=== PATIENT | male | born 1945 | race Caucasian/White ===

== ENCOUNTER 2020-05-22 10:41 | Emergency (ER) | payer OTHER ==
[~2020-05-22] VITALS: Ht 177.8 cm; Wt 56.2 kg
[2020-05-22 15:15] VITALS: BP 132/78
== END 2020-05-22 15:15 | disposition home or self-care (01) ==
LOC: ER 10:41
DX: M25.551 Pain in right hip (principal); I10 Essential (primary) hypertension; F17.210 Nicotine dependence, cigarettes, uncomplicated

== ENCOUNTER → 2020-10-02 | Emergency (ER) | payer OTHER ==
[~2020-10-02] VITALS: Ht 180.3 cm; Wt 54.4 kg
[~2020-10-02] MED LIST: AUGMENTIN 875-1 EACH PO; BUDESONIDE EC3 MG PO; DURAGESIC1 EAC2 TOP; FLONASE 0.05%50 MCG NARES; GUAIFENESIN400 MG PO; HYDROCODON-ACE1 EAC7 PO; LIDODERM1 EACH TOP; PREDNISONE 10 M10 M1 PO; PROAIR HFA8.5 GM INH; ROBAXIN 750 MG750 MG PO; TRAZODONE HCL50 MG PO; VIBRAMYCIN 100100 M2 PO
[2020-10-02 12:07] VITALS: BP 115/66
[2020-10-02 13:51] LABS: HEMOGLOBIN 7.4 gm/dL (14.0-18.0); MCH 33.5 pg (26.0-34.0); WBC 2.5 thou/uL (4.0-11.0)
[2020-10-02 13:53] LABS: HEMATOCRIT 22.3 % (42.0-52.0); MCHC 33.2 g/dL (28.0-37.0); MCV 100.8 fL (80.0-100.0); RBC 2.21 mil/uL (4.50-6.00); RDW 20.2 % (10.5-14.5)
[2020-10-02 14:01] LABS: ANION GAP 8 mmol/L (7-16); BUN 18 mg/dL (7-18); CALCIUM 9.1 mg/dL (8.5-10.1); CHLORIDE 106 mmol/L (98-107); CO2 32 mmol/L (21-32); CREATININE 0.7 mg/dL (0.7-1.3); GLUCOSE 108 mg/dL (74-106); POTASSIUM 3.3 mmol/L (3.5-5.1); SODIUM 146 mmol/L (136-145)
[2020-10-02 14:11] LABS: ALBUMIN 3.6 g/dL (3.4-5.0); SGOT 24 U/L (15-37); SGPT 15 U/L (16-63); TOTAL BILIRUBIN 0.8 mg/dL (0.2-1.0); TOTAL PROTEIN 7.6 g/dL (6.4-8.2); TROPONIN-I <0.06 ng/mL (<0.06)
[2020-10-02 14:53] LABS: ABSOLUTE NEUTROPHILS 1.5 thou/uL (1.4-8.2); NUCLEATED RBCS 2 /100WBC
[2020-10-02 14:54] LABS: ANISOCYTOSIS 2+; MACROCYTES 1+
[2020-10-02 14:55] LABS: PLATELET COUNT 26 thou/uL (150-400)
[2020-10-02 14:56] LABS: PLATELET ESTIMATE MARKEDLY DECREASED
--- NOTE | 2020-10-03 07:10 | EKG ---
[place] [address] [facility] [place] [address] ELECTROCARDIOGRAM REPORT Name: AYALA CARPIO [id number] Admission: 10/02/20 Attend Phys: Discharge: Date of : 49 Report #: [id number] [facility] ED Test Date: 2020-10-02 Test Time: 13:38:27 Pat Name: AYALA CARPIO Department: Room: Gender: M Personnel Representative: QASIM : 1945 Requested By: Eliana Briggs Order Number: [id number] MD: Akin Welch Measurements Intervals [place] Rate: 95 P: 55 MN: 130 QRS: -23 QRSD: 96 T: 66 QT: 369 QTc: 464 Interpretive Statements Sinus rhythm Ventricular trigeminy Borderline left axis deviation RSR' in V1 or V2, probably normal variant No previous ECG available for comparison Electronically Signed On 10-03-2020 7:10:10 CDT by Akin Welch [email or web address] <ELECTRONICALLY SIGNED> By: Akin Welch MD, [facility] 10/03/20 0710 1338 [id number] Akin Welch MD, FACC /EPI
== END ==
LOC: ER 11:54
PROVIDERS: Physician Assistant
DX: J18.9 Pneumonia, unspecified organism (principal); D64.9 Anemia, unspecified; E87.6 Hypokalemia; R11.2 Nausea with vomiting, unspecified; F17.210 Nicotine dependence, cigarettes, uncomplicated; Z79.899 Other long term (current) drug therapy

== ENCOUNTER 2020-10-03 11:33 | Inpatient (IN) | payer OTHER ==
[~2020-10-03] VITALS: Ht 180.3 cm; Wt 55.2 kg
[~2020-10-03 11:33] MED LIST changes: -AUGMENTIN 875-1 EACH PO; -PREDNISONE 10 M10 M1 PO; -TRAZODONE HCL50 MG PO
[2020-10-03 11:38] VITALS: BP 162/66
[2020-10-03 12:29] LABS: MCH 33.3 pg (26.0-34.0); WBC 2.8 thou/uL (4.0-11.0)
[2020-10-03 12:30] LABS: MCHC 32.8 g/dL (28.0-37.0); MCV 101.3 fL (80.0-100.0); RBC 1.96 mil/uL (4.50-6.00)
[2020-10-03 12:40] LABS: HEMATOCRIT 19.9 % (42.0-52.0); HEMOGLOBIN 6.5 gm/dL (14.0-18.0)
[2020-10-03 12:51] LABS: ANION GAP 9 mmol/L (7-16); BUN 18 mg/dL (7-18); CHLORIDE 106 mmol/L (98-107); CO2 32 mmol/L (21-32); CREATININE 0.5 mg/dL (0.7-1.3); GLUCOSE 88 mg/dL (74-106); POTASSIUM 3.5 mmol/L (3.5-5.1); SODIUM 147 mmol/L (136-145)
[2020-10-03 13:06] LABS: ALBUMIN 3.3 g/dL (3.4-5.0); SGOT 26 U/L (15-37); SGPT 13 U/L (30-65); TOTAL BILIRUBIN 0.9 mg/dL (0.2-1.0); TOTAL PROTEIN 7.2 g/dL (6.4-8.2); TROPONIN-I <0.06 ng/mL (<0.06)
[2020-10-03 13:22] LABS: ABSOLUTE NEUTROPHILS 1.7 thou/uL (1.4-8.2); METAMYELOCYTES 1 %; NUCLEATED RBCS 2 /100WBC
[2020-10-03 13:23] LABS: POLYCHROMASIA 1+; SCHISTOCYTES OCCASIONAL; TEARDROPS FEW
[2020-10-03 13:24] LABS: PLATELET COUNT 28 thou/uL (150-400); TARGET CELLS OCCASIONAL
[2020-10-03 13:56] LABS: URINE BILIRUBIN NEGATIVE (Negative); URINE BLOOD NEGATIVE (Negative); URINE CLARITY CLEAR; URINE COLOR YELLOW; URINE GLUCOSE-RANDOM* NEGATIVE (Negative); URINE KETONES NEGATIVE (Negative); URINE LEUKOCYTES-REFLEX NEGATIVE (Negative); URINE NITRITE-REFLEX NEGATIVE (Negative); URINE PROTEIN (DIPSTICK) TRACE (Negative)
[2020-10-03 15:11] VITALS: BP 154/77
[2020-10-03 17:36] VITALS: BP 155/89; BP 161/83; BP 164/84; BP 168/114; BP 171/84
[2020-10-03 23:29] VITALS: BP 187/91
[2020-10-04 03:45] VITALS: BP 150/80
[2020-10-04 04:08] LABS: HEMATOCRIT 23.9 % (42.0-52.0); HEMOGLOBIN 8.1 gm/dL (14.0-18.0); MCH 32.8 pg (26.0-34.0); MCV 96.5 fL (80.0-100.0); RBC 2.47 mil/uL (4.50-6.00); RDW 20.3 % (10.5-14.5)
[2020-10-04 04:25] LABS: CALCIUM 8.7 mg/dL (8.5-10.1); CREATININE 0.6 mg/dL (0.7-1.3); POTASSIUM 3.9 mmol/L (3.5-5.1)
[2020-10-04 05:09] LABS: WBC 1.7 thou/uL (4.0-11.0)
[2020-10-04 05:18] LABS: ABSOLUTE RETIC COUNT 0.0738 10^6/uL; OBSERVED RETIC COUNT 2.84 % (0.6-2.6)
[2020-10-04 05:24] LABS: APTT 30.2 Seconds (24.5-32.8); INR 1.02; PROTIME 11.1 Seconds (9.3-11.4)
[2020-10-04 05:28] LABS: % SATURATION 45 % (20-39); IRON 105 ug/dL (65-175); TIBC 235 ug/dL (250-450)
--- NOTE | 2020-10-04 06:46 | NUR ---
PT ARRIVED FROM ER VIA W/C. PLACED IN ROOM 355. ADMISSION ASSESSMENTS COMPLETED. SEE CHARTING. ON ROOM AIR THROUGHOUT THE NIGHT. REPORTS COUGH WITH OCCASIONAL CLEAR TO YELLOW SPUTUM BUT NO COUGH OBSERVED. NOTED THIS AM WBC, 1.7 CLEARED FROM COVID ISOLATION R/T TWO NEGATIVE COVID SWABS.
--- NOTE | 2020-10-04 06:58 | EKG ---
[place] [address] [facility] [place] [address] ELECTROCARDIOGRAM REPORT Name: AYALA CARPIO Room #: 357-P ADM IN M.R.#: [id number] Admission: 10/03/20 Attend Phys: Armando Gar MD Discharge: Date of : 49 Report #: [id number] [facility] ED Test Date: 2020-10-03 Test Time: 12:19:25 Pat Name: AYALA CARPIO Department: Room: 357 Gender: M Weatherization Coordinator: ARLEN : 1945 Requested By: Gwendolyn Bach Order Number: [id number] MD: Akin Welch Measurements Intervals [place] Rate: 77 P: 74 TX: 154 QRS: -24 QRSD: 97 T: 52 QT: 410 QTc: 465 Interpretive Statements Sinus rhythm Ventricular premature complex Borderline low voltage, extremity leads Probable left ventricular hypertrophy Compared to ECG 10/02/2020 13:38:27 No significant changes Electronically Signed On 10-04-2020 6:58:28 CDT by Akin Welch [email or web address] <ELECTRONICALLY SIGNED> By: Akin Welch MD, [facility] 10/04/20 0658 Akin Welch MD, [facility] /EPI
[2020-10-04 07:02] VITALS: BP 149/74
[2020-10-04 07:41] VITALS: BP 151/71
--- NOTE | 2020-10-04 10:06 | 2DMMODE ---
[facility] [employer] [id number] 2 D/M-MODE ECHOCARDIOGRAM Name: AYALA CARPIO Room #: 357-P ADM IN .R.#: [id number] Admission: 10/03/20 Attend Phys: Armando Gar MD Discharge: Date of : 49 Report #: [id number] THIS REPORT FOR: cc: FAM - Family physician unknown FAM - Family physician unknown Akin Welch MD [facility] ~ APPROVED REPORT Study performed: 10/04/2020 07:49:50 EXAM: Comprehensive 2D, Doppler, and color-flow Echocardiogram Patient Location: Bedside Room #: 357 Status: routine BSA: 1.69 HR: 67 bpm BP: 146/76 mmHg Rhythm: NSR Other Information Study Quality: Adequate Indications Diabetes Murmur Hypertension/HDD 2D Dimensions RVDd: 33.94 mm IVSd: 14.02 (7-11mm) LVOT Diam: 2.20 (18-24mm) LVDd: 48.20 mm PWd: 12.12 (7-11mm) Ascending Ao: 34.14 (22-36mm) LVDs: 34.57 (25-40mm) Aortic Root: 30.32 mm IVC: 20.00 mm Volumes Left Atrial Volume (Systole) Single Plane 4CH: 55.46 mL Single Plane 2CH: 63.37 mL LA ESV Index: 45.00 mL/m2 Aortic Valve AoV Peak Jeremiah.: 1.65 m/s AO Peak Gr.: 10.84 mmHg LVOT Max P.21 mmHg [facility] [address] [address] 2 D/M-MODE ECHOCARDIOGRAM Name: SHIRINAYALA Room #: 357-P [facility] IN ..#: [id number] Admission: 10/03/20 Attend Phys: Armando Gar MD Discharge: Date of : 49 Report #: [id number] LVOT Max V: 1.03 m/s OLAYINKA Vmax: 3.36 cm2 AI Vmax: 4.58 m/s AI Young: 2.11 m/s2 AI PHT: 628.98 ms Mitral Valve E/A Ratio: 0.7 MV Decel. Time: 216.15 ms MV E Max Jeremiah.: 0.53 m/s MV A Jeremiah.: 0.71 m/s MV PHT: 62.68 ms IVRT: 119.95 ms Pulmonary Valve PV Peak Jeremiah.: 0.96 m/s PV Peak Gr.: 3.69 mmHg Pulmonary Vein P Vein S: 0.74 m/s P Vein A: 0.40 m/s P Vein D: 0.37 m/s P Vein A Dur.: 129.2 msec P Vein S/D Ratio: 2.00 Left Ventricle The left ventricle is normal size. There is normal left ventricular wall thickness. The left ventricular systolic function is normal. The left ventricular ejection fraction is within the normal range. LVEF is 55%. Grade I - abnormal relaxation pattern. Right Ventricle The right ventricle is normal size. The right ventricular systolic function is normal. Atria Left atrium is dilated. Right atrium is dilated. Aortic Valve The aortic valve is normal in structure. Aortic valve is thickened but has adequate excursion. Mild aortic regurgitation. There is no aortic valvular stenosis. Mitral Valve The mitral valve is normal in structure. Mild mitral regurgitation. No evidence of mitral valve stenosis. Tricuspid Valve The tricuspid valve is normal in structure. Trace tricuspid [facility] [address] [address] 2 D/M-MODE ECHOCARDIOGRAM Name: AYALA CARPIO Room #: 357-P ADM IN .R.#: [id number] Admission: 10/03/20 Attend Phys: Armando Gar MD Discharge: Date of : 49 Report #: [id number] regurgitation. Unable to assess PA pressure. Pulmonic Valve The pulmonary valve is normal in structure. Trace pulmonic regurgitation. Great Vessels The aortic root is normal in size. IVC is normal in size and collapses >50% with inspiration. Pericardium There is no pericardial effusion. <Conclusion> Normal left ventricular size/wall thickness Ejection fraction 55% Grade 1 diastolic dysfunction Normal right ventricular size/function Mild biatrial enlargement Color-flow Doppler study was performed of the aortic/mitral/tricuspid/pulmonary valve Tricuspid aortic valve Mild aortic valve insufficiency Mild mitral valve insufficiency Trace tricuspid valve insufficiency, unable to assess PA systolic pressure No pericardial effusion Normal aortic root size. <ELECTRONICALLY SIGNED> By: Akin Welch MD, FACC 10/04/201005 05 05 Akin Welch MD, FACC /INF
[2020-10-04 13:08] LABS: HAPTOGLOBIN 232 mg/dL (34-355); IgA 204 mg/dL (61-437); IgG 1007 mg/dL (603-1613); IgM 37 mg/dL (15-143)
[2020-10-04 14:07] LABS: HEMOGLOBIN 8.6 g/dL (13.0-17.7)
[2020-10-04 15:41] VITALS: BP 173/89
--- NOTE | 2020-10-04 15:44 | NUR ---
ASSESSMENT: CM REVIEWED CHART AND SPOKE WITH PATIENT. PT WAS ADMITTED DUE TO SOB POSSIBLE PNEUMONIA/SEPSIS. PT IS ON IV ANBX. PT REPORTS THAT HE LIVES IN A HOUSE WITH SIGNIFICANT OTHER. PT REPORTS THREE STEPS TO ENTER AND NO STEPS HE HAS TO USE ONCE INSIDE. PT REPORTS HE HAS A CANE AND WALKER AT HOME. PT REPORTS HE HAS A GRAB BAR IN THE SHOWER AND IS INDEPENDENT WITH ADLS. PT HAS NO OXYGEN AT HOME OR CPAP. CM WAS NOTIFIED THAT PATIENT HAS [place] [employer] [place]UR[place] AND THE [place] IS REQUESTING TRANSFER PENDING BED AVAILABILTY. ANDRE REACHED OUT TO TRANSFER RN AT THE [place] [phone] AND SPOKE WITH FARIDA WHO REPORTS THEY ARE CURRENTLY AT CAPACITY AND CANNOT ACCEPT HIM TODAY. FARIDA STATING SHE WILL NOTE IN PATIENTS CHART THAT WE ATTEMPTED TO TRANSFER HIM BUT THEY ARE FULL, SHE STATES TO Call BACK TOMORROW AM TO SEE IF THEY HAVE AVAILABILTY. CM NOTIFIED PT OF THIS. PT REPORTS HE PLANS ON DISCHARGING HOME TOMORROW. PT DOES NOT ANTICIPATE HAVING ANY NEEDS FROM CM. CM WILL CONTINUE TO FOLLOW TO ASSIST NEEDED.
[2020-10-04 17:21] VITALS: BP 149/97
--- NOTE | 2020-10-04 18:11 | NUR ---
PT TRANSFERED TO FLOOR FROM [facility] AT 1700 IN STABLE CONDITION.C/O COLD .WARM BLANKET GIVEN. DINNER GIVEN AND WELL TOLERATED.NO FURTHER C/O.WILL CONTINUE TO MONITOR.
[2020-10-04 20:01] VITALS: BP 132/84
--- NOTE | 2020-10-05 02:44 | NUR ---
PT CARE ASSUMED WITH PT IN BED WATCHING TV.PT IS A/O X4.PT IS UP WITH STANDBY ASSIST TO BATHROOM.PT C/O PAIN AND HYDROCODONE GIVEN.PT IS ON ROOM AIR.PT HAS BLE EDEMA .IV ACCESS ON RFA WITH NS AT 75CC/HR.WILL CONTINUE TO MONITOR
[2020-10-05 07:49] VITALS: BP 166/100
[2020-10-05 09:27] VITALS: BP 166/100
[2020-10-05] MEDS ORDERED: TRAZODONE HCL50 MG PO (11:12)
[2020-10-05] MEDS ORDERED: PREDNISONE 10 M10 M1 PO (11:14)
[2020-10-05] MEDS ORDERED: AUGMENTIN 875-1 EACH PO (11:14)
--- NOTE | 2020-10-05 12:00 | NUR ---
CARE TEAM INDICATED THAT PT IS MEDICALLY STABLE TO DISCHARGE HOME THIS DAY. PT IS TO DC HOME TO SELF CARE. NO OTHER CM INTERVENTION INDICATED. CASE CLOSED.
[2020-10-05 12:02] VITALS: BP 166/100
[2020-10-05 13:08] LABS: GLOBULIN TOTAL 3.2 g/dL (2.2-3.9); M-SPIKE Not Observed g/dL (Not Observed)
[2020-10-05 17:07] LABS: KAPPA FREE LIGHT CHAINS 15.2 mg/L (3.3-19.4); KAPPA/LAMBDA RATIO 1.32 (0.26-1.65); LAMBDA FREE LIGHT CHAINS 11.5 mg/L (5.7-26.3)
[2020-10-06] MEDS ORDERED: AUGMENTIN 875-1 EACH PO (11:30)
[2020-10-06] MEDS ORDERED: TRAZODONE HCL50 MG PO (11:30)
[2020-10-06] MEDS ORDERED: PREDNISONE 10 M10 M1 PO (11:30)
== END 2020-10-05 15:32 | disposition home or self-care (01) | DRG 871 ==
LOC: ER 11:33 → EROBS 17:08 → 3W 17:08 → 4W 10-04 16:53
PROVIDERS: Internal Medicine Hematology & Oncology; Nurse Practitioner Family; ADMIT Hospitalist; ATTEND Hospitalist
PROC: 30233N1 Transfusion of Nonautologous Red Blood Cells into Peripheral Vein, Percutaneous Approach (ICD-10-PCS; principal; 2020-10-03)
DX: A41.9 Sepsis, unspecified organism (principal); J18.9 Pneumonia, unspecified organism; E43 Unspecified severe protein-calorie malnutrition; J44.1 Chronic obstructive pulmonary disease with (acute) exacerbation; D61.818 Other pancytopenia; C79.51 Secondary malignant neoplasm of bone; Z68.1 Body mass index [BMI] 19.9 or less, adult; J44.0 Chronic obstructive pulmonary disease with (acute) lower respiratory infection; Z20.822 Contact with and (suspected) exposure to COVID-19; F17.210 Nicotine dependence, cigarettes, uncomplicated; G89.29 Other chronic pain; M54.2 Cervicalgia; C61 Malignant neoplasm of prostate; R53.81 Other malaise; M54.9 Dorsalgia, unspecified; R63.4 Abnormal weight loss; Z71.6 Tobacco abuse counseling; Z79.899 Other long term (current) drug therapy
CPT/HCPCS: 10045; 10879

== ENCOUNTER 2020-10-14 08:20 | Inpatient (IN) | payer OTHER ==
[~2020-10-14] VITALS: Ht 180.3 cm; Wt 52.8 kg
--- NOTE | ~2020-10-14 | EMS ---
[facility] [address] [place] [address] EMS Patient Care Report Name: AYALA CARPIO Room #: 451-P [facility] IN M.R.#: [id number] Admission: 10/14/20 Attend Phys: Luz Montanez MD Discharge: 10/18/20 Date of : 49 Report #: [id number] THIS REPORT FOR: //name// Report Transmitted: 10/20/2020 08:00 EMS Care Summary [facility] MED-ACT Incident [id number] @ 10/14/2020 07:38 Incident Location [address] [place] [address] Patient AYALA CARPIO Male, 75 Years 1945 Patient Address [address] [place] [address] Patient History Gastro-Esophageal Reflux Disease (GERD),Neuropathy,Prostate Cancer, Patient Allergies No known allergies, Patient Medications Other, Potassium, Methocarbamol, Gabapentin, Omeprazole, Amlodipine, Ibuprofen, Lidocaine, Prednisone, Guaifenesin, Trazodone, Tamsulosin, Ondansetron, Hydrocodone, Chief Complaint Neck Pain Disposition Transported No Lights/[place] Dis[place] Transported To [facility] Narrative CHIEF COMPLAINT: Neck Pain [facility] [address] [place] [address] EMS Patient Care Report Name: AYALA CARPIO Room #: 451-P DIS IN M.R.#: [id number] Admission: 10/14/20 Attend Phys: Luz Montanez MD Discharge: 10/18/20 Date of : 49 Report #: [id number] H.P.I.: Mr. Ayala Carpio, a 75 y.o.m., fell onto the kitchen floor while trying to hot die picker his cat. He denied L.O.C. before, during, or after the fall. He reported his neck hurts more than normal- usually rated at 2-3/10. Now 8/10 and over a broader area. His head pain is minor. UPON ARRIVAL: Mr. Carpio was sitting on the kitchen floor awake and in no distress. LFD had arrived on scene and had bandaged his elbow wound. He complained of neck pain, so I placed a cervical collar. DISPOSITION: After treating Mr. Carpio as described above we assisted him to his feet and then onto the stretcher. Transport was non-emergent to [facility] as per his choice. Info-only radio report; v/s monitored; no incidents or changes. We were directed to rm 9. We slid Mr. Carpio to the hospital bed. Report was received by an magra RN. Initial Vitals @08:13P: 84,R: 16,BP: 198/107,Pain: 8/10,GCS: 15,SpO2: 88,Revised Trauma: 12, @07:50P: 87,R: 20,BP: 177/97,Pain: 8/10,GCS: 15,SpO2: 91,Revised Trauma: 12, @08:03P: 86,R: 16,BP: 170/107,Pain: 8/10,GCS: 15,Temp: 98.2F,SpO2: 88,Revised Trauma: 12, Assessments @07:52MENTAL:Person Oriented,Time Oriented,Event Oriented,Place Oriented,SKIN:HEENT:Head/Face: Other,Neck/Airway: Other,LUNG SOUNDS:ABDOMEN:PELVIS//GI:EXTREMITIES:Right Arm: Other,Left Arm: No Abnormalities,Left Leg: No Abnormalities,Right Leg: No Abnormalities,PULSE:Radial: 2+ Normal,NEURO:No Abnormalities, Impression Injury of Head Procedures @PTASurgical Mask on PatientResponse: Unchanged@PTABandagingResponse: UnchangedSucceeded@07:54Spinal Motion RestrictionResponse: UnchangedSucceeded Timeline VIDEO RECORDER MECHANIC,Surgical Mask on Patient,Response: Unchanged VIDEO RECORDER MECHANIC,Bandaging,Response: UnchangedSucceeded, 07:36,Call Received 07:36,Psap Call 07:38,Dispatched 07:39,[place] [address] EMS Patient Care Report Name: AYALA CARPIO Room #: 451-P [facility] IN ..#: [id number] Admission: 10/14/20 Attend Phys: Luz Montanez MD Discharge: 10/18/20 Date of : 49 Report #: [id number] 07:45,On Scene 07:48,At Patient 07:50,BP: 177/97 M,PULSE: 87,RR: 20 R,SPO2: 91 Ox,ETCO2: ,BG: ,PAIN: 8,GCS: 15, 07:54,Spinal Motion Restriction,Response: UnchangedSucceeded, 08:02,Depart Scene 08:03,BP: 170/107 M,PULSE: 86,RR: 16 R,SPO2: 88 Ox,ETCO2: ,BG: ,PAIN: 8,GCS: 15, 08:08,At Destination 08:13,BP: 198/107 M,PULSE: 84,RR: 16 R,SPO2: 88 Ox,ETCO2: ,BG: ,PAIN: 8,GCS: 15, 08:28,Call Closed Disclaimer v1.1 Copyright 2020 [employer] This EMS Care Summary contains data elements from the applicable legal record (which may be displayed differently). It is designed to provide pertinent information for the following purposes: continuity of care, clinical quality, and state data reporting. The complete legal record is available to ED staff and administrators of the receiving hospital in [employer] Patient Tracker. All data is provided "as is."
[2020-10-14 08:20] VITALS: BP 172/100
[~2020-10-14 08:20] MED LIST changes: +AUGMENTIN 875-1 EACH PO; -DURAGESIC1 EAC2 TOP; +DURAGESIC1 EAC2 TRANSDERM; +PREDNISONE 10 M10 M1 PO; +TRAZODONE HCL50 MG PO
[2020-10-14] MEDS ORDERED: ONDANSETRON HCL4 M2 PO (08:43)
[2020-10-14] MEDS ORDERED: IBUPROFEN 800800 M1 PO (08:44)
[2020-10-14] MEDS ORDERED: CETIRIZINE HCL5 MG PO (08:45)
[2020-10-14] MEDS ORDERED: POTASSIUM99 M1 PO (08:45)
--- NOTE | 2020-10-14 08:50 | NUR ---
PT HAD TWO FENTANYL PATCHES ON BILATERAL THIGHS AND R REMOVED AT THIS TIME
[2020-10-14 09:08] LABS: HEMATOCRIT 24.5 % (42.0-52.0); HEMOGLOBIN 8.3 gm/dL (14.0-18.0); MCH 33.4 pg (26.0-34.0); MCHC 33.7 g/dL (28.0-37.0); MCV 99.3 fL (80.0-100.0); RBC 2.47 mil/uL (4.50-6.00); RDW 20.2 % (10.5-14.5)
[2020-10-14 09:10] LABS: CREATININE 0.5 mg/dL (0.7-1.3); POTASSIUM 3.9 mmol/L (3.5-5.1)
[2020-10-14 09:16] LABS: ALBUMIN 3.4 g/dL (3.4-5.0); TOTAL BILIRUBIN 1.3 mg/dL (0.2-1.0); TOTAL PROTEIN 7.1 g/dL (6.4-8.2)
[2020-10-14 09:20] LABS: PROTIME 10.4 Seconds (9.3-11.4)
[2020-10-14 09:24] LABS: WBC 1.7 thou/uL (4.0-11.0)
[2020-10-14 10:12] LABS: ABSOLUTE NEUTROPHILS 0.8 thou/uL (1.4-8.2); METAMYELOCYTES 6 %; NUCLEATED RBCS 2 /100WBC
[2020-10-14 10:13] LABS: ANISOCYTOSIS 2+; MACROCYTES 1+; MICROCYTES 1+
[2020-10-14 10:14] LABS: POLYCHROMASIA OCCASIONAL
[2020-10-14 10:15] LABS: PLATELET COUNT 23 thou/uL (150-400); PLATELET ESTIMATE MARKEDLY DECREASED
--- NOTE | 2020-10-14 10:35 | NUR ---
REMOVE FENTANYL PATCH PRIOR TO GIVING IV FENTANYL PER DR NUGENT REQUEST.
--- NOTE | 2020-10-14 10:45 | EKG ---
[place] [address] [facility] [place] [address] ELECTROCARDIOGRAM REPORT Name: AYALA CARPIO [facility] [id number] Admission: 10/14/20 Attend Phys: Discharge: Date of : 49 Report #: [id number] [facility] ED Test Date: 2020-10-14 Test Time: 08:42:28 Pat Name: AYALA CARPIO Department: Room: Gender: M Manager Maritime: : 1945 Requested By: Lynne Barboza Order Number: [id number] MD: Akin Welch Measurements Intervals [place] Rate: 78 P: 51 MA: 131 QRS: 18 QRSD: 95 T: 60 QT: 391 QTc: 446 Interpretive Statements Sinus rhythm Compared to ECG 10/03/2020 12:19:25 Ventricular premature complex(es) no longer present Electronically Signed On 10-14-2020 10:45:04 CDT by Akin Welch [email or web address] <ELECTRONICALLY SIGNED> By: Akin Welch MD, [facility] 10/14/20 1045 0842 0842 Akin Welch MD, FACFe /EPI
[2020-10-14 14:24] VITALS: BP 152/97
--- NOTE | 2020-10-14 17:18 | NUR ---
PATIENT ARRIVED TO UNIT FROM ED AT APPROX. 1500. DTR AT BEDSIDE TO ASSIST W ADMISSION. ADMISSION CHECKLIST COMPLETED. TELEMETRY APPLIED TO PATIENT. PATIENT ORIENTED TO ROOM; CALL LIGHT WITHIN REACH. [employer] CONTANCTED FOR NECK BRACE FITTING BUT THEY "WILL BE OUT UNTIL SATURDAY". FALL PRECAUTIONS IN PLACE. WILL CONTINUE TO MONITOR AND AWAIT ANY NEW ORDERS
[2020-10-14 19:54] VITALS: BP 150/73
[2020-10-15] VITALS (10 sets, daily range): BP systolic 91–149; BP diastolic 55–98
--- NOTE | 2020-10-15 03:00 | NUR ---
ASSUMED CARE OF PT AT 1900. PT IS A/O X4 AND IS UP WITH ASSISTANCE. C-COLLAR IN PLACE. 2 LITERS OF O2 NC. SR WITH PVC ON THE MONITOR. PHILLIP IN PLACE AND DRAINING YELLOW URINE. NO BM THIS SHIFT. APPEARS ANXIOUS AND C/O SEVERE GENERALIZED PAIN WITH RESTLESS LEGS. NOTIFIED PHYSCIAN THAT MED REQ HAD NOT BEEN IMPLEMENTED. ORDERS GIVEN TO RESTART HOME MEDICATIONS. PT HAS CHOSEN FOR COMFORT TO SLEEP IN RECLINER. C/O INSOMNIA. PRN SLEEP MEDICATION PROVIDED DIRECTED. FALL PRECAUTIONS AND SCD'S ARE IN PLACE. SKIN APPEARS BRUISED WITH A PRESSURE DRSG TO RIGHT ELBOW DUE TO RECENT SKIN TEAR. DRSG IS C/D/I. CALLS OUT APPROPRIATELY. WILL CONTINUE TO MONITOR.
[2020-10-15 09:07] LABS: WBC 2.6 thou/uL (4.0-11.0)
[2020-10-15 09:10] LABS: HEMATOCRIT 21.4 % (42.0-52.0); HEMOGLOBIN 7.2 gm/dL (14.0-18.0); MCH 33.5 pg (26.0-34.0); MCHC 33.9 g/dL (28.0-37.0); MCV 98.8 fL (80.0-100.0); RBC 2.16 mil/uL (4.50-6.00); RDW 19.7 % (10.5-14.5)
[2020-10-15 09:21] LABS: CALCIUM 8.5 mg/dL (8.5-10.1); CREATININE 0.6 mg/dL (0.7-1.3); MAGNESIUM 1.8 mg/dL (1.8-2.4); POTASSIUM 3.6 mmol/L (3.5-5.1); TOTAL BILIRUBIN 1.2 mg/dL (0.2-1.0); TOTAL PROTEIN 6.4 g/dL (6.4-8.2)
--- NOTE | 2020-10-15 09:46 | NUR ---
Received awake on bed. Due medications given as prescribed, able to swallow meds w/o difficulty. On telemetry; no complains and signs of chest pain, crushing sensation and heaviness. Assisted in ADLs. On O2 at 2lpm via nasal cannula. On soft fiber restricted diet- encouraged and assisted in eating and drinking; no nausea, no vomiting and no abdominal pain noted. With jaffe in place- output measured and recorded accordingly; using bedside commode at times as reported by previous RN. 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 With C colar in place. With SL at L AC and L UA- NS at 100cc/hr, infusing well. Falls bundle in place. Complained of pain, due PRN PO meds given as prescribed. Able to sit out on the chair this AM. To continue monitoring patient.
[2020-10-15 12:18] LABS: ABSOLUTE NEUTROPHILS 1.1 thou/uL (1.4-8.2); NUCLEATED RBCS 2 /100WBC
[2020-10-15 12:20] LABS: ANISOCYTOSIS 2+
[2020-10-15 12:31] LABS: PLATELET COUNT 18 thou/uL (150-400)
[2020-10-15 18:09] LABS: HEMATOCRIT 28.5 % (42.0-52.0); MCHC 34.5 g/dL (28.0-37.0); MCV 95.8 fL (80.0-100.0); RBC 2.97 mil/uL (4.50-6.00); RDW 17.5 % (10.5-14.5); WBC 4.4 thou/uL (4.0-11.0)
[2020-10-15 18:10] LABS: HEMOGLOBIN 9.8 gm/dL (14.0-18.0)
--- NOTE | 2020-10-16 01:06 | NUR ---
ASSESSMENT: PT REMAIN ALERT AND ORIENT TIMES THREE. ANXIOUS AT TIMES. PT'S DAUGHTER WAS AT THE BEDSIDE AT THE BEGINNING OF THE SHIFT. PT WAS TAKEN DOWN FOR CT OF HEAD. LATER CXR WAS DONE AT THE BEDSIDE. PT IS RUNNING A LOW GRADE TEMP, MAX BEING 101.0. HYDROCODONE GIVEN FOR PAIN, AND POSSIBLE DECREASE TEMP. PT UP IN THE RECLINER FOR THE MOST OF THE SHIFT. DID GET IN BED BRIEFLY. ASPEN COLLAR INTACT. TOLERATING WELL. C/O OF LOWER BACK PAIN, LIDO PATCH APPLIED IN THAT AREA. PHILLIP PATENT WITH LOW OUTPUT. SR WITH PVC'S PER MONITOR. SLOW PROGRESS TOWARDS DC GOALS,. WILL CONTINUE TO MONITOR,.
[2020-10-16 03:58] VITALS: BP 100/55
[2020-10-16 07:07] VITALS: BP 101/57
[2020-10-16 15:29] VITALS: BP 98/58
--- NOTE | 2020-10-16 17:13 | NUR ---
Urine catheter out around 9:45am, patient urinated. Bladder scanning was done around 5 pm, 36ml residual. Dr. Chase is aware.
[2020-10-16 20:03] VITALS: BP 110/68
--- NOTE | 2020-10-17 02:16 | NUR ---
PT CARE ASSUMED t 1900 WITH SOON AT BEDSIDE OF THE BED WITH PT SITTING IN CHAIR.PT IS A/O X4.PT IS UP WITH X1 ASSIST TO CHAIR.PT HAS A NECK COLLAR TO IMMOBILIZE AND FENTYL PATCH ON LT BACK AND LIDOCAINE PATCH ON MID BACK.PT IV ACCESS ON LT FA AND LT AC BOTH SL.WILL CONTINUE TO MONITOR
[2020-10-17 05:35] LABS: HEMOGLOBIN 9.3 gm/dL (14.0-18.0)
[2020-10-17 05:39] LABS: HEMATOCRIT 27.8 % (42.0-52.0); MCH 32.5 pg (26.0-34.0); MCHC 33.5 g/dL (28.0-37.0); MCV 96.9 fL (80.0-100.0); PLATELET COUNT 59 thou/uL (150-400); RBC 2.87 mil/uL (4.50-6.00); RDW 18.6 % (10.5-14.5); WBC 6.7 thou/uL (4.0-11.0)
[2020-10-17 06:02] LABS: ALBUMIN 2.8 g/dL (3.4-5.0); CALCIUM 8.8 mg/dL (8.5-10.1); CREATININE 0.5 mg/dL (0.7-1.3); MAGNESIUM 1.9 mg/dL (1.8-2.4); PHOSPHORUS 2.1 mg/dL (2.5-4.9); POTASSIUM 3.4 mmol/L (3.5-5.1); TOTAL BILIRUBIN 1.2 mg/dL (0.2-1.0)
[2020-10-17 06:32] LABS: ABSOLUTE NEUTROPHILS 3.4 thou/uL (1.4-8.2); ANISOCYTOSIS 2+; NUCLEATED RBCS 2 /100WBC; PLATELET ESTIMATE DECREASED
[2020-10-17 07:26] VITALS: BP 108/84
--- NOTE | 2020-10-17 12:08 | NUR ---
PT ADMITTED RELATED TO FALL;C2 FX. CM REVIEWED CHART AND SPOKE WITH CARE TEAM. CM MET WITH PT AND DTR AT BEDSIDE THIS DAY. PT APPEARED TO BE A&O X4. CM ROLE INTRODUCED. PT INDICATED HE RESIDES IN A HOUSE WITH A WOMEN KRISTIE MARTINEZ WHO HE REFERS TO HIS (GIRLFRIEND) BUT DTR INDICATES IS A LANDLORD/CAREGIVER SITUATION. PT INDICATED THERE ARE 3 STEPS TO ENTER AND NO STEPS HE NEEDS TO USE INSIDE. PT INDICATED HE HAS FWW, 4WW, AND CANES FOR USE IN THE HOME. PT INDICATED HE HAD BEEN ABLE TO DO OWN ADLS BUT DTR INDICATED HE NEEDED ASSIST AND THAT KRISTIE HAD ASSISTED DIRECTOR EMERGENCY DEPARTMENT. DTR INDICATED THAT SHE HAS DONE [place] DPOA DURING PT'S ADMISSION CM CHECKING IF THAT IS APPROPRIATE OR NOT. DTR EXPRESSED INTEREST IN PT GOING SKILLED UPON DC KRISTIE IS TRYING TO CONVINCE PT TO "CUT TIES WITH DTR" AND SHE FEARS SHE WON'T BE ABLE TO SEE PT IF HE RETURNS TO THE HOME. PT RECEPTIVE TO SKILLED IF RECOMMENDED. CM CALLED [facility] TRANSITION TEAM AND LEFT VM. PT'S TELEPHONE ENGINEER AT THE [facility] IS MIKE . CM CALLED AND WILL FOLLOW UP. CM FOLLOWING REGARDING DC PLANNING.
[2020-10-17 15:10] VITALS: BP 109/68
--- NOTE | 2020-10-17 15:24 | NUR ---
ASSESSMENT CHARTED. PT ALERT AND ORIENTED. PLEASANT AND COOPERATIVE WITH CARES. PRN PAIN MED GIVEN WITH PARTIAL RELIEF. UP IN THE CHAIR THIS SHIFT. PARTICIPATED IN PT/OT. FAMILY UPDATED ON PT'S PROGRESS AND PLAN OF CARE. NO CONCERNS AT THIS TIME. PROGRESSING WELL TOWARDS DISCHARGE GOAL.
--- NOTE | 2020-10-17 15:27 | NUR ---
STAFF REFERRAL FROM [facility] REGARDING DPOA FOR HEALTHCARE DECISIONS. PATIENT APPOINTED HIS 2 DAUGHTERS: GILMAR HUGHES (LOCAL) PATRICIA CARVALHO
[2020-10-17 20:11] VITALS: BP 122/79
[2020-10-17 21:00] VITALS: BP 122/79
--- NOTE | 2020-10-18 05:29 | NUR ---
Assumed pt care at 1900. A/OX4,VSS. C/o back/neck pain,medicated per EMAR with relief reported. C-colar remains in place. Up with AX1,RW/GB. Pt anxious about dc plans,updated authorization for rehab is pending,verbalized understanding. Fall precautions in place,calls approp for help. Does have a congested cough which he reports has been ongoing for months. SR/PVCs on telemetry,resting quietly at this time,will continue to monitor pt.
[2020-10-18 07:12] VITALS: BP 126/70
[2020-10-18 09:03] VITALS: BP 126/70
--- NOTE | 2020-10-18 10:21 | NUR ---
ASSUMED PT CARE THIS AM. PT VSS, A&OX4. PATIENT ABLE TO MAKE NEEDS KNOWN. PATIENT WEARING A C COLLAR. BRUISING NOTED ON BILATERAL ARMS. PATIENT COMPLAINED OF BACK PAIN OF A 4, STATING THAT WAS HIS BASELINE PAIN LEVEL. PATIENT HAS A COUGH. ON ROOM AIR. IV PATENT. PATIENT ON TELEMETRY. DAUGHTER AT BEDSIDE. FALL PRECAUTIONS ARE IN PLACE.
--- NOTE | 2020-10-18 11:24 | NUR ---
CM SPOKE WITH PT'S DTR THIS AM. SHE EXPRESSED CONCERN ABOUT PT'S MENTATION INDICATING THAT PT DOESN'T RETAIN RECOMMENDATIONS. CM NOTIFIED PHYSICIAN AND SHE ORDERED ST FOR [facility] EVAL AND DR. UNDERWOOD CONSULT FOR [facility] EVAL. [facility] RECEIVED REFERRAL AND ARE REACHING OUT TO [facility] REGARDING BENEFIT COVERAGE. CM TO CALL ALSO. CM FOLLOWING TO SET UP SKILLED POST ACUTE CARE PLACEMENT.
[2020-10-18 11:26] LABS: HEMATOCRIT 27.3 % (42.0-52.0); HEMOGLOBIN 9.1 gm/dL (14.0-18.0); MCH 32.3 pg (26.0-34.0); MCHC 33.4 g/dL (28.0-37.0); MCV 96.7 fL (80.0-100.0); RBC 2.82 mil/uL (4.50-6.00); RDW 17.7 % (10.5-14.5); WBC 5.8 thou/uL (4.0-11.0)
[2020-10-18] MEDS ORDERED: DOXYCYCLINE HY100 M3 PO (14:30)
[2020-10-18 15:04] VITALS: BP 120/82
--- NOTE | 2020-10-18 15:37 | NUR ---
SPOKE WITH MARY BETH BEDOYA CM AT THE [facility] SHE INDICATED THAT PT IS ONLY 10% SERVICE CONNECTED THEREFORE CAN'T GO SKILLED UNDER HIS [facility] BENEFIT BUT CAN GO SKILLED UNDER HIS MEDICARE [id number]. PT HAS MED A ONLY. CM NOTIFED DTR/DPOA AND SHE INDICATED THEY WERE AGREEABLE WITH GOING UNDER HIS MEDICARE. [facility] ACC[facility] PT. COVID TEST PENDING PER DTR PT IS VACCINATED IN JULY. [facility] TRANSPORT WITH 2L O2 ARRANGED FOR [id number]. CHART COPY MADE. ORDERS FAXED. NURSE HAS NUMBER FOR REPORT. NO OTHER CM INTERVENTION INDICATED. CASE CLOSED.
== END 2020-10-18 17:30 | DRG 551 ==
LOC: ER 08:20 → EROBS 15:14 → 4W 15:14
PROVIDERS: Emergency Medicine; Hospitalist; ADMIT Surgery; ATTEND Internal Medicine
PROC: 30233N1 Transfusion of Nonautologous Red Blood Cells into Peripheral Vein, Percutaneous Approach (ICD-10-PCS; principal; 2020-10-15)
DX: S12.111A Posterior displaced Type II dens fracture, initial encounter for closed fracture (principal); J96.01 Acute respiratory failure with hypoxia; E43 Unspecified severe protein-calorie malnutrition; D61.818 Other pancytopenia; C79.51 Secondary malignant neoplasm of bone; G89.29 Other chronic pain; M54.9 Dorsalgia, unspecified; S00.03XA Contusion of scalp, initial encounter; W18.39XA Other fall on same level, initial encounter; S40.812A Abrasion of left upper arm, initial encounter; C61 Malignant neoplasm of prostate; S50.01XA Contusion of right elbow, initial encounter; M41.9 Scoliosis, unspecified; D69.6 Thrombocytopenia, unspecified; J44.9 Chronic obstructive pulmonary disease, unspecified; F17.210 Nicotine dependence, cigarettes, uncomplicated; E87.6 Hypokalemia; Z20.822 Contact with and (suspected) exposure to COVID-19; Z79.899 Other long term (current) drug therapy; Y93.89 Activity, other specified; Y92.89 Other specified places as the place of occurrence of the external cause; Y99.8 Other external cause status
CPT/HCPCS: 10040; 10045

== ENCOUNTER 2020-10-25 19:01 | Inpatient (IN) | payer OTHER ==
[~2020-10-25] VITALS: Ht 180.3 cm; Wt 51.3 kg
--- NOTE | ~2020-10-25 | EMS ---
[address] [address] EMS Patient Care Report Name: AYALA CARPIO Room #: 170-5 ADM IN ..#: [id number] Admission: 10/25/20 Attend Phys: Stan Ocampo MD Discharge: Date of : 49 Report #: [id number] THIS REPORT FOR: //name// Report Transmitted: 10/25/2020 21:37 EMS Care Summary [facility] Incident [id number] @ 10/25/2020 18:12 Incident Location [address] [place] [address] Patient AYALA MAYS Male, 75 Years 1945 Patient Address [address] [place] [address] Patient History Chronic Obstructive Pulmonary Disease (COPD),Emphysema, Patient Allergies No known allergies, Patient Medications Furosemide, Fentanyl, Amoxicillin, Prednisone, Lidocaine, Doxycycline, Chief Complaint Neck Pain from prior injury Disposition Transported No Lights/[place] Dispatch Reason Sick Person Transported To [facility] Narrative Dispatched for abnormal labs, upon arrival M3 found the 75 year old male sitting upright in his room chair. The patient was AO x4, GCS 15, with normal respirations, stating no new complaint. SNF Staff met M3 at the room shortly after arrival stating that the patient had abnormal labs and needed to be [address] [address] EMS Patient Care Report Name: AYALA CARPIO Room #: 170-5 ADM IN [facility].#: [id number] Admission: 10/25/20 Attend Phys: Stan Ocampo MD Discharge: Date of : 49 Report #: [id number] evaluated for a possible transfusion. Vitals were obtained and stable. The patient denied any new injury or complaint. He had a C-Collar that had been applied due to a fall two weeks prior. The patient was able to stand and transfer to the stretcher and was secured inside the ambulance. The patient agreed to be transported to [facility] Ed for evaluation and transport was initiated. During transport IV access was obtained and vitals remained stable. Upon arrival to [facility] ED the patient was escorted on the stretcher to ED 5 and patient care was transferred to EDRN Ayala via verbal report. Initial Vitals @18:36P: 87,R: 14,BP: 112/75,Pain: 6/10,GCS: 15,CO: 0,SpO2: 100,Revised Trauma: 12, @18:22P: 90,R: 20,BP: 108/64,Pain: 6/10,GCS: 15,SpO2: 98,Revised Trauma: 12, @18:52P: 86,R: 12,BP: 112/62,Pain: 6/10,GCS: 15,CO: 0,SpO2: 99,Revised Trauma: 12, Assessments @18:21MENTAL:No Abnormalities,SKIN:No Abnormalities,HEENT:Neck/Airway: Other,Head/Face: No Abnormalities,Eyes: No Abnormalities,LUNG SOUNDS:General: No Abnormalities,Left Upper: No Abnormalities,Right Upper: No Abnormalities,Left Lower: No Abnormalities,Right Lower: No Abnormalities,ABDOMEN:General: No Abnormalities,Left Upper: No Abnormalities,Right Upper: No Abnormalities,Left Lower: No Abnormalities,Right Lower: No Abnormalities,PELVIS//GI:No Abnormalities,EXTREMITIES:Left Arm: No Abnormalities,Right Arm: No Abnormalities,Left Leg: No Abnormalities,Right Leg: No Abnormalities,PULSE:Radial: 2+ Normal,NEURO:No Abnormalities,@18:50MENTAL:No Abnormalities,SKIN:No Abnormalities,HEENT:Neck/Airway: Tracheal Deviation,Head/Face: No Abnormalities,Eyes: No Abnormalities,LUNG SOUNDS:General: No Abnormalities,Left Upper: No Abnormalities,Right Upper: No Abnormalities,Left Lower: No Abnormalities,Right Lower: No Abnormalities,ABDOMEN:General: No Abnormalities,Left Upper: No Abnormalities,Right Upper: No Abnormalities,Left Lower: No Abnormalities,Right Lower: No Abnormalities,PELVIS//GI:No Abnormalities,EXTREMITIES:Left Arm: No Abnormalities,Right Arm: No Abnormalities,Left Leg: No Abnormalities,Right Leg: No Abnormalities,PULSE:Radial: 2+ Normal,NEURO:No Abnormalities, Impression Anemia Procedures @18:21ALS AssessmentResponse: UnchangedSucceeded@18:50ALS AssessmentResponse: UnchangedSucceeded@18:40Saline Lock [facility] (18 ga) Site: Forearm-LeftResponse: [place] [address] EMS Patient Care Report Name: SHIRINAYALA Room #: 170-5 ADM IN M.R.#: [id number] Admission: 10/25/20 Attend Phys: Stan Ocampo MD Discharge: Date of : 49 Report #: [id number] Timeline 18:10,Call Received 18:10,Psap Call 18:12,Dispatched 18:13,En Route 18:19,On Scene 18:20,At Patient 18:21,ALS Assessment,Response: UnchangedSucceeded, 18:22,BP: 108/64 M,PULSE: 90,RR: 20 R,SPO2: 98 Ox,ETCO2: ,BG: ,PAIN: 6,GCS: 15, 18:31,Depart Scene 18:36,BP: 112/75 M,PULSE: 87,RR: 14 R,SPO2: 100 Ox,ETCO2: ,BG: ,PAIN: 6,GCS: 15, 18:40,Saline Lock 10cc 18 ga Site: Forearm-Left,Response: UnchangedSucceeded, 18:50,ALS Assessment,Response: UnchangedSucceeded, 18:52,BP: 112/62 M,PULSE: 86,RR: 12 R,SPO2: 99 Ox,ETCO2: ,BG: ,PAIN: 6,GCS: 15, 18:55,At Destination 19:32,Call Closed Disclaimer v1.1 Copyright 2020 [employer] This EMS Care Summary contains data elements from the applicable legal record (which may be displayed differently). It is designed to provide pertinent information for the following purposes: continuity of care, clinical quality, and state data reporting. The complete legal record is available to ED staff and administrators of the receiving hospital in [employer]'s Patient Tracker. All data is provided "as is."
[~2020-10-25 19:01] MED LIST changes: +CETIRIZINE HCL5 MG PO; +DOXYCYCLINE HY100 M3 PO; +IBUPROFEN 800800 M1 PO; +ONDANSETRON HCL4 M2 PO; +POTASSIUM99 M1 PO
[2020-10-25 19:05] VITALS: BP 129/63
[2020-10-25 19:27] LABS: HEMOGLOBIN 6.9 gm/dL (14.0-18.0); MCHC 33.2 g/dL (28.0-37.0); RBC 2.14 mil/uL (4.50-6.00)
[2020-10-25 19:28] LABS: HEMATOCRIT 20.9 % (42.0-52.0); MCH 32.4 pg (26.0-34.0); MCV 97.7 fL (80.0-100.0); RDW 18.4 % (10.5-14.5); WBC 5.5 thou/uL (4.0-11.0)
[2020-10-25 19:32] LABS: CALCIUM 8.8 mg/dL (8.5-10.1); CREATININE 0.9 mg/dL (0.7-1.3); POTASSIUM 3.5 mmol/L (3.5-5.1)
[2020-10-25 19:38] LABS: ALBUMIN 2.5 g/dL (3.4-5.0); APTT 28.2 Seconds (24.5-32.8); INR 1.05; PROTIME 11.4 Seconds (10.5-12.1); TOTAL BILIRUBIN 0.6 mg/dL (0.2-1.0); TOTAL PROTEIN 6.4 g/dL (6.4-8.2)
[2020-10-25 20:09] LABS: ABSOLUTE NEUTROPHILS 3.1 thou/uL (1.4-8.2); METAMYELOCYTES 3 %; MYELOCYTES 1 %; NUCLEATED RBCS 1 /100WBC; PLATELET COUNT 24 thou/uL (150-400); POLYCHROMASIA 1+
[2020-10-25 20:30] VITALS: BP 118/72; BP 120/74; BP 124/77; BP 131/74; BP 138/80
[2020-10-25 20:35] VITALS: BP 119/66
--- NOTE | 2020-10-25 20:59 | NUR ---
Was put on hold for over 5 min while waiting for RN to give report (First attempt)
[2020-10-25 21:01] VITALS: BP 134/66
--- NOTE | 2020-10-25 21:20 | NUR ---
Called to give report for second time and was told RN was in a pt's room and to call back in 20 minutes
[2020-10-26 00:20] VITALS: BP 135/83
--- NOTE | 2020-10-26 01:51 | NUR ---
PT ARRIVED FROM ER. GOT 1 UNIT OF BLOOD PRIOR TO ARRIVAL. VSS. ADMISSION DONE AND PT ORIENTED TO THE UNIT. IVS IN INTACT RT FA AND LEFT FA. NS INFUSING. BRUSING NOTED ON SKIN PT STATED ITS FROM PAIN SHOT FROM HIS CANCER TREATMENT. SLIGHT REDNESS NOTED ON BUTTOCK WITH A 1CM ULCER WOUND PICTURE TAKEN. 2+ EDEMA ON RT FOOT PITTING. ELEVATED. PT NPO AT MIDNIGHT. FALL PREC IN PLACE AND CALL LIGHT AT REACH. PT ON A C-COLLAR FROM PREVIOUS HOSPITALIZATION DUE TO FALL. WILL CONT TO MONITOR.
[2020-10-26 05:27] LABS: HEMATOCRIT 23.7 % (42.0-52.0); HEMOGLOBIN 7.8 gm/dL (14.0-18.0); RBC 2.48 mil/uL (4.50-6.00); WBC 4.8 thou/uL (4.0-11.0)
[2020-10-26 05:29] LABS: MCH 31.4 pg (26.0-34.0); MCV 95.3 fL (80.0-100.0); RDW 17.3 % (10.5-14.5)
[2020-10-26 05:57] LABS: CALCIUM 8.4 mg/dL (8.5-10.1); CREATININE 0.5 mg/dL (0.7-1.3); POTASSIUM 3.4 mmol/L (3.5-5.1)
[2020-10-26 07:15] VITALS: BP 131/61
[2020-10-26 09:16] VITALS: BP 131/61
--- NOTE | 2020-10-26 14:50 | NUR ---
PT ADMITTED RELATED TO ANEMIA. PT HAD DISCHARGED TO [facility] 10/18. PT WITH HX OF PROSTATE CA WITH BONE METS, S/P CHEMO AND RADIATION, C2 FRACTURE, EMPHYSEMA , PCL MALNUTRITION, SPONDYLOSIS, AND PNUMONIA. PT FAMILIAR TO CM FROM PREVIOUS ADMISSION. PT'S DTRS ARE KAROLINA HUGHES AT BEDSIDE THIS AFTERNOON. PHYSICIAN MET WITH THEM AND DISCUSSED GOALS OF CARE AND OPTIONS. DTR INDICATED THAT PT MAY BE CONTEMPLATING HOSPICE. PT HAD GOTTEN SOME MORPHINE AND WAS NOT PARTICIPATORY IN ASSESSMET AT TIME OF CM VISIT. CM SPOKE WITH DTR ABOUT HOSPICE SERVICES AND SETTINGS OF SERVICES. SHE INDICATED THAT HE SISTER IS DRIVING IN FROM [place] AND WILL ARRIVE TOMORROW. GI CONSULTED. CM FOLLOWING REGARDING DC PLANNING. PT'S DTR INDICATED THAT KRISTIE THE INDIVIDUAL PT'S RESIDES WITH IS TO VISIT THIS EVENING. CM NOTIFIED STAFF. CM FOLLOWING REGARDING DC PLANNING.
[2020-10-26 15:59] VITALS: BP 156/60
[2020-10-26 19:10] VITALS: BP 126/70
[2020-10-26 23:51] VITALS: BP 130/68; BP 144/69
--- NOTE | 2020-10-27 00:30 | NUR ---
Pt. in agreement to have platlets infused along with DPOA. Platlets infused without difficulty. Pt. is also wanting to get EGD done and will convey this to the day nurse during report. Pt. c/o neck pain and ivp pain med given (see emar) with relief noted. Bed alarm is on.
[2020-10-27 07:23] VITALS: BP 150/70
--- NOTE | 2020-10-27 07:30 | NUR ---
PT SITTING UP IN RECLINER CHAIR WITH LEGS ELEVATED. PT STATED HE HAS SOME PAIN TO BUTTOCKS. ASSISTED NIGHT NURSE PUTTING CHAIR ALARM UNDER HIS BUTTOCKS. PT HAS NECK BRACE ON. PT HAS IV FLUID NS AT 80ML/HR. PT NPO AT THIS TIME DUE TO POSS EGD. PT WANTING TO DRINK FLUIDS, GAVE PT MOUTH SPONGES FOR DRY MOUTH. PT HAS OXYGEN ON 2L NC.
--- NOTE | 2020-10-27 07:32 | NUR ---
NOTIFIED GI LAB ABOUT IF PT IS ON LIST TODAY, YESTERDAY WAS UNDECIDED ON SCOPE TODAY. GI WAS GOING TO PAGE DR OR APPRAISER PERSONAL PROPERTY ON HIS PROCEDURE.
--- NOTE | 2020-10-27 09:15 | NUR ---
PT WILL HAVE EDG TODAY. PT STILL NPO FOR PROCEDURE.
[2020-10-27 09:38] LABS: HEMATOCRIT 21.5 % (42.0-52.0); HEMOGLOBIN 7.3 gm/dL (14.0-18.0); MCH 31.8 pg (26.0-34.0); MCHC 33.9 g/dL (28.0-37.0); RBC 2.29 mil/uL (4.50-6.00); RDW 17.1 % (10.5-14.5); WBC 2.6 thou/uL (4.0-11.0)
--- NOTE | 2020-10-27 09:41 | NUR ---
ADM MORPHINE 2MG IV FOR PAIN OF 6 ON 1-10 SCALE. DTR AT BEDSIDE AND WAS CONCERNED ABOUT KRISTIE. PT THINKS SHE IS HIS GIRLFRIEND, DTR STATED SHE IS NOT. SHE STATED THAT PT WAS DECLINING EGD YESTERDAY, BUT AFTER TALKING WITH KRISTIE PT DECIDED TO DO PROCEDURE. PT RECIEVED PLT'S LAST NIGHT DUE TO CRITICAL LOW LEVEL.
--- NOTE | 2020-10-27 11:18 | NUR ---
DR. STEPHENS CAME TO TALK WITH DTR MEENA. PT STILL WANTING EGD. PT GETTING IMPATIENT FOR PROCEDURE.
--- NOTE | 2020-10-27 11:41 | NUR ---
PT LEFT VIA CART TO GI LAB. PT WALKED FROM CHAIR TO CART WITHOUT ANY OXYGEN AND PT ANOOP. ACTIVITY WITHOUT SOB.
--- NOTE | 2020-10-27 13:00 | NUR ---
PT BACK FROM EGD DUE TO ANESTESIA REFUSING TO PUT HIM UNDER. PT GIVEN WATER AND APPLE JUICE TO DRINK.
--- NOTE | 2020-10-27 14:49 | NUR ---
PT WAS TO HAVE EGD THIS AM BUT DTR INDICATED THAT ANESTHESIOLOGIST WOULDN'T PUT PT UNDER FOR PROCEDURE. PT AND FAMILY INTERESTED IN EVALUATION FOR HOSPICE HOUSE ADMISSION. THEY WANTED REFERRAL SENT TO [facility]. THEY ACCAPTED BUT INDICATED THAT CHILDREN CAN'T VISIT. KIDS CAN VISIT AT [facility] ON . CM SENT REFERRAL THERE PER THEIR REQUEST. [facility]PER[facility] OPENING AND PICKING WILL VISIT WITH PT AND FAMILY TOMORROW. CM FOLLOWING REGARDING DC PLANNING.
[2020-10-27 15:00] VITALS: BP 152/78
--- NOTE | 2020-10-27 15:01 | NUR ---
PT WANTING TO HAVE MORPHINE FOR PAIN. ADM MORPHINE 2MG IV FOR PAIN TO BACK/NECK OF 6 ON 1-10 SCALE. PT STATED HE WILL NEED HIS FENTANYL PATCH REPLACED TODAY.
--- NOTE | 2020-10-27 17:44 | NUR ---
PT WANTING TO GET HIS FENTANYL PATCH CHANGED. PAGED DR. STEPHENS FOR ORDERS.
--- NOTE | 2020-10-27 18:10 | NUR ---
PT REQUESTING PAIN MEDICATION DUE TO PAIN TO NECK OF 6 ON 1-10 SCALE. PT DID DRINK HIS ENSURE WITH DINNER. PT HAS ATE PUDDING AND DRANK APPLE JUICE TODAY.
--- NOTE | 2020-10-27 18:11 | NUR ---
ADM MORPHINE 2MG IV TO RT SL IV.
[2020-10-27 21:09] VITALS: BP 148/71
[2020-10-28 03:20] VITALS: BP 144/89
--- NOTE | 2020-10-28 03:31 | NUR ---
ASSUMED PT CARE AT AROUND 1915 HRS. PT IS ALERT AND ORIENTED.COOPERATIVE. C-COLLAR IN PLACE. DENIES PAIN. BEEN QUIETLY RESTING WELL. NO BM. VOIDING PER URINAL. AFEBRILE. HAS A CONGESTED COUGH. REMAINS ON / AND SATTING ABOVE 97%. CALLS APPROPRIATELY.
[2020-10-28 08:26] VITALS: BP 155/92
--- NOTE | 2020-10-28 09:46 | NUR ---
BPCI letter provided to patient with preferred provider list, patient admitted from [facility] but lives in home setting
[2020-10-28] MEDS ORDERED: ACETAMINOPHEN325 M1 PO (12:06)
[2020-10-28] MEDS ORDERED: TRAZODONE HCL100 MG PO (12:06)
[2020-10-28] MEDS ORDERED: BACLOFEN 10MG T10 MG PO (12:06)
[2020-10-28] MEDS ORDERED: MIRALAX17 GM PO (12:06)
--- NOTE | 2020-10-28 13:45 | NUR ---
[facility] ASSESSED PT THIS AM AND INDICATED THAT THEY ARE ABLE TO ACCEPT PT THIS DAY. PT AND FAMILY ARE AWARE AND AGREEABLE. ORDERS FAXED. CHART COPY MADE. NURSE GIVEN NUMBER FOR REPORT. [facility] TRANSPORT ARRANGED FOR 1400. NO OTHER CM INTERVENTION INDICATED. CASE CLOSED.
--- NOTE | 2020-10-28 15:36 | NUR ---
ASSUMED PT CARE THIS AM. PT IS ALERT & ORIENTED X4. PT IS DNR. PT IS UP WITH ASSIST X1 AND TRANSPORT VIA [facility]. PT USES URINAL. PT HAS IV SITE ON R FA 20 GAUGE SALINE LOCKED. PT USES 02 2L NC. PT C/O OF PAIN AND GIVEN PAIN MEDICATION PER PT REQUEST. PT TOLERATED MED WELL. PT HAS CERVICAL COLLAR DUE TO FRACTURE. CALLED HANDS OF REPORT THIS AFTERNOON. PT WAS [employer]IA [employer]. PT WAS DISCHARGED TODAY.
== END 2020-10-28 15:45 | disposition hospice, home (50) | DRG 377 ==
LOC: ER 19:01 → EROBS 20:05 → 4W 20:05
PROVIDERS: Emergency Medicine; Nurse Practitioner; Nurse Practitioner Family; ADMIT Hospitalist; ATTEND Hospitalist
PROC: 30233N1 Transfusion of Nonautologous Red Blood Cells into Peripheral Vein, Percutaneous Approach (ICD-10-PCS; principal; 2020-10-25)
PROC: 30233R1 Transfusion of Nonautologous Platelets into Peripheral Vein, Percutaneous Approach (ICD-10-PCS; 2020-10-26)
DX: K27.4 Chronic or unspecified peptic ulcer, site unspecified, with hemorrhage (principal); E43 Unspecified severe protein-calorie malnutrition; G93.41 Metabolic encephalopathy; D62 Acute posthemorrhagic anemia; Z68.1 Body mass index [BMI] 19.9 or less, adult; Z20.822 Contact with and (suspected) exposure to COVID-19; G89.29 Other chronic pain; M54.2 Cervicalgia; M54.9 Dorsalgia, unspecified; F17.210 Nicotine dependence, cigarettes, uncomplicated; D69.6 Thrombocytopenia, unspecified; R53.81 Other malaise; K31.9 Disease of stomach and duodenum, unspecified; Z66 Do not resuscitate; Z51.5 Encounter for palliative care; Z85.46 Personal history of malignant neoplasm of prostate; Z92.3 Personal history of irradiation; Z92.21 Personal history of antineoplastic chemotherapy; Z79.1 Long term (current) use of non-steroidal anti-inflammatories (NSAID); Z87.81 Personal history of (healed) traumatic fracture
CPT/HCPCS: 10047